=== PATIENT | female | born 1990 ===

== ENCOUNTER 2017-04-12 10:56 | Emergency (ER) | payer SELFPAY ==
--- NOTE | 2017-04-12 12:09 | UC ---
Lower Extremity/Ankle HPI - HPI Summary HPI Summary: 26 Y/O female presents with C/O toe pain bilateral lower extremities and finger pain x 2 days. States when cold pain is increased with resolution with warming. C/O flushed toes, "burning" and mild swelling. Denies injury, or joint pain. Medical history and medications reviewed at this visit. - History of Current Complaint Chief Complaint: UCLowerExtremity Stated Complaint: FEET COMPLAINT Time Seen by Provider: 04/12/17 11:57 Hx Obtained From: Patient Hx Last Menstrual Period: 04/02/17 Onset/Duration: Sudden Onset Severity Initially: Moderate Severity Currently: Moderate Pain Intensity: 5 Pain Scale Used: 0-10 Numeric Aggravating Factor(s): Other - Cold Alleviating Factor(s): Rest Able to Bear Weight: Yes - Risk Factors Gout Risk Factors: Negative DVT Risk Factors: Negative Septic Arthritis Risk Factor: Negative - Allergies/Home Medications Allergies/Adverse Reactions: Allergies Allergy/AdvReac Type Severity Reaction Status Date / Time No Known Allergies Allergy Verified 04/12/17 11:54 Home Medications: Home Medications Quetiapine Fumarate [Seroquel] 0.25 mg PO DAILY 04/12/17 [History Confirmed ] PMH/Surg Hx/FS Hx/Imm Hx Previously Healthy: Yes - Surgical History Surgical History: None - Social History Alcohol Use: None Substance Use Type: None Smoking Status (MU): Never Smoked Tobacco - Immunization History Most Recent Influenza Vaccination: NOT UTD Review of Systems Constitutional: Negative Skin: Other - flushed appearance toes Eyes: Negative ENT: Negative Respiratory: Negative Cardiovascular: Negative Gastrointestinal: Negative Genitourinary: Negative Motor: Negative Neurovascular: Negative Musculoskeletal: Negative Neurological: Negative Psychological: Negative Is Patient Immunocompromised?: No All Other Systems Reviewed And Are Negative: Yes Physical Exam Triage Information Reviewed: Yes Appearance: Well-Appearing Vital Signs: Initial Vital Signs Temp 98.2 F 04/12/17 11:47 Pulse 102 04/12/17 11:47 Resp 16 04/12/17 11:47 BP 110/76 04/12/17 11:47 Pulse Ox 100 04/12/17 11:47 Vital Signs Reviewed: Yes Respiratory Exam: Normal Cardiovascular Exam: Normal Musculoskeletal Exam: Normal Musculoskeletal: Positive: ROM Intact Neurological Exam: Normal Psychological Exam: Normal Skin Exam: Other - Flushing to bilateral lower extremity (limited to toes). (+) pedal pulses. Lower Extremity Course/Dx - Differential Dx/Diagnosis Differential Diagnosis/HQI/PQRI: Arthritis, Gout Provider Diagnoses: Raynauds Discharge - Discharge Plan Condition: Stable Disposition: HOME Patient Education Materials: Raynaud Disease (ED) Referrals: No Primary Care Phys,NOPCP [Primary Care Provider] - Additional Instructions: Try to keep extremities protected from the cold. Please follow up with your primary medical provider if symptoms continue or worsen. You may return to Urgent Care as needed.
== END 2017-04-12 12:41 | disposition home or self-care (01) ==
LOC: UCEAST 10:56
DX: I73.00 Raynaud's syndrome without gangrene (principal)
CPT/HCPCS: 99201; G0463